=== PATIENT | female | born 1985 | race Caucasian/White ===

== ENCOUNTER 2025-03-25 18:37 | Emergency (ER) | payer OTHER ==
[~2025-03-25] VITALS: Ht 167.6 cm; Wt 90.7 kg
[2025-03-25 20:21] LABS: PLATELET COUNT (AUTO) 245 K/uL (150-450); RED BLOOD CELL COUNT(AUTO) 3.75 MIL/uL (4.0-5.2); RED CELL DISTRIBUTION WIDTH 16.6 % (11.5-15.0); WHITE BLOOD COUNT (AUTO) 5.1 K/uL (4.3-11.0)
[2025-03-25 20:43] LABS: APPEARANCE,URINE TURBID (CLEAR); BLOOD, URINE NEGATIVE Ery/uL (NEGATIVE); LEUKOCYTE ESTERASE ,URINE NEGATIVE (NEGATIVE); NITRITE, URINE NEGATIVE (NEGATIVE); UGLUCOSE NEGATIVE (NEGATIVE)
[2025-03-25 20:49] LABS: CALCIUM, SERUM 8.6 mg/dL (8.5-10.1); CREATININE 0.9 mg/dL (0.6-1.3); SODIUM SERUM 148 mmol/L (136-145); UREA NITROGEN, BLOOD 12 mg/dL (7-18)
[2025-03-25] MEDS ORDERED: PROCHLORPERAZINE EDISYLATE 10 MG/2 ML VIAL ONE (20:57)
[2025-03-25] MEDS: PROCHLORPERAZINE EDISYLATE 10 MG/2 ML VIAL IVP ONE (20:57)
[2025-03-25] MEDS: IV NS 0.9% 1,000 ML BAG IV ONE (20:58)
[2025-03-25 21:02] LABS: ADD URINE CULTURE NO; SQUAMOUS EPITHELIAL CELL,UR 0-2 /HPF (None Seen); URINE AMORPHOUS PHOSPHATES Moderate /HPF (None Seen)
[2025-03-25 21:02] LABS: ASPARTATE AMINOTRANSFERASE 15 U/L (15-37)
[2025-03-25 21:03] LABS: TOTAL PROTEIN, SERUM 6.7 g/dL (6.4-8.2)
[2025-03-25 21:33] LABS: EOSINOPHILS % (MANUAL) 2 % (0-4); LYMPHOCYTES % (MANUAL) 72 % (16-48); MONOCYTES % (MANUAL) 15 % (0-11.0); NEUTROPHILS % (MANUAL) 11 (42-76); PLATELET ESTIMATE ADEQUATE
[2025-03-25 21:41] LABS: ALCOHOL, BLOOD < 3 mg/dL (0-10)
[2025-03-25 21:42] LABS: AMPHETAMINE, URINE NEGATIVE (NEGATIVE); BARBITURATE, URINE NEGATIVE (NEGATIVE); BENZODIAZEPINE, URINE POSITIVE (NEGATIVE); CANNABINOID, URINE POSITIVE (NEGATIVE); COCCAINE, URINE NEGATIVE (NEGATIVE); OPIATE, URINE NEGATIVE (NEGATIVE)
[2025-03-25 21:53] VITALS: BP 122/78; TEMP 98.1; O2SAT 99
== END 2025-03-25 21:54 | disposition home or self-care (01) ==
LOC: ER 18:42
DX: T59.0X1A Toxic effect of nitrogen oxides, accidental (unintentional), initial encounter (principal); R51.9 Headache, unspecified; R20.2 Paresthesia of skin; R20.0 Anesthesia of skin; F19.10 Other psychoactive substance abuse, uncomplicated; R10.2 Pelvic and perineal pain; R07.9 Chest pain, unspecified; Y92.89 Other specified places as the place of occurrence of the external cause
CPT/HCPCS: 99285; 96374; 96361; 96375; 93005; 70450; 85027; 80048; 80076; 85007; 81001; 36415; 84702; 80143; 80320; 80307; 80503; J0780; J1200; J7030; G0480

== ENCOUNTER 2025-04-30 11:00 | Emergency (ER) | payer OTHER ==
[~2025-04-30] VITALS: Ht 167.6 cm; Wt 90.7 kg
[2025-04-30] MEDS ORDERED: ACETAMINOPHEN ES 500 MG TABLET ONE (11:38)
[2025-04-30] MEDS: ACETAMINOPHEN 325 MG TABLET PO ONE (11:45)
[2025-04-30] MEDS: IV NS 0.9% 1,000 ML BAG IV ONE (11:45)
[2025-04-30 12:00] VITALS: TEMP 98.3
[2025-04-30 13:56] VITALS: BP 125/85; O2SAT 98
== END 2025-04-30 13:45 | disposition home or self-care (01) ==
LOC: ER 11:03
DX: T42.6X1A Poisoning by other antiepileptic and sedative-hypnotic drugs, accidental (unintentional), initial encounter (principal); R00.0 Tachycardia, unspecified; R00.2 Palpitations; R51.9 Headache, unspecified; F19.10 Other psychoactive substance abuse, uncomplicated; R53.83 Other fatigue; Y92.89 Other specified places as the place of occurrence of the external cause
CPT/HCPCS: 99283; 96360; J7030

== ENCOUNTER 2025-06-17 14:32 | Emergency (ER) | payer OTHER ==
[~2025-06-17] VITALS: Ht 167.6 cm; Wt 90.7 kg
[2025-06-17 14:42] VITALS: TEMP 98.3
[2025-06-17] MEDS ORDERED: ONDANSETRON HCL/PF 4 MG/2 ML VIAL ONE (15:38)
[2025-06-17] MEDS ORDERED: METOCLOPRAMIDE HCL 10 MG/2 ML VIAL ONE (15:38)
[2025-06-17] MEDS ORDERED: ACETAMINOPHEN ES 500 MG TABLET ONE ×2 (15:39→15:57)
[2025-06-17 15:46] LABS: PLATELET COUNT (AUTO) 397 K/uL (150-450); RED BLOOD CELL COUNT(AUTO) 4.33 MIL/uL (4.0-5.2); RED CELL DISTRIBUTION WIDTH 17.7 % (11.5-15.0); WHITE BLOOD COUNT (AUTO) 16.1 K/uL (4.3-11.0)
[2025-06-17 15:50] LABS: CALCIUM, SERUM 8.6 mg/dL (8.5-10.1); CREATININE 1.2 mg/dL (0.6-1.3); SODIUM SERUM 134 mmol/L (136-145); UREA NITROGEN, BLOOD 12 mg/dL (7-18)
[2025-06-17] MEDS: IV NS 0.9% 1,000 ML BAG IV ONE (15:53)
[2025-06-17] MEDS: METOCLOPRAMIDE HCL 10 MG/2 ML VIAL IV ONE (15:56)
[2025-06-17] MEDS ORDERED: KETOROLAC TROMETHAMINE 15 MG/ML VIAL ONE (15:56)
[2025-06-17 15:57] LABS: INR 0.98 (0.91-1.10)
[2025-06-17] MEDS: ONDANSETRON HCL/PF 4 MG/2 ML VIAL IVP ONE (16:02)
[2025-06-17] MEDS: ACETAMINOPHEN ES 500 MG TABLET PO ONE (16:08)
[2025-06-17] MEDS: KETOROLAC TROMETHAMINE 15 MG/ML VIAL IV ONE (16:10)
[2025-06-17 17:13] LABS: FLOW, VBG 0.00 L/min (0.00-30.00); FRACTIONATED INSPIRED OXYGEN-V 21.0 %; SITE, VBG VBG - N/A; VBG BASE EXCESS -3.4 mmol/L (-2.0-3.0); VBG HCO3 20.5 mmol/L (22.0-29.0); VBG MetHb 0.0 % (0.5-1.5); VBG OXYGEN SATURATION 81.0 % (60.0-85.0); VBG PCO2 33.0 mmHg (38.0-54.0); VBG PH 7.412 (7.320-7.430); VBG PO2 45.7 mmHg (23.0-48.0); VBG TOTAL HEMOGLOBIN 10.7 G/dL (12.0-16.0)
[2025-06-17] MEDS ORDERED: DIPH25CA83 PO (17:25)
[2025-06-17] MEDS ORDERED: METF-440 PO (17:25)
[2025-06-17] MEDS ORDERED: METO-295 PO (17:25)
[2025-06-17] MEDS ORDERED: ONDA4TAB5 PO (17:25)
[2025-06-17 17:54] VITALS: BP 132/100; O2SAT 99
[2025-06-17 18:35] LABS: APPEARANCE,URINE CLEAR (CLEAR); BLOOD, URINE NEGATIVE Ery/uL (NEGATIVE); LEUKOCYTE ESTERASE ,URINE NEGATIVE (NEGATIVE); NITRITE, URINE NEGATIVE (NEGATIVE); PREGNANCY TEST URINE QUAL NEGATIVE (NEGATIVE); UGLUCOSE 3+ mg/dL (NEGATIVE)
[2025-06-17 18:49] LABS: SQUAMOUS EPITHELIAL CELL,UR Many /HPF (None Seen)
[2025-06-17 18:50] LABS: ADD URINE CULTURE YES
== END 2025-06-17 17:55 | disposition home or self-care (01) ==
LOC: ER 14:36
DX: R51.9 Headache, unspecified (principal); M54.2 Cervicalgia; H53.8 Other visual disturbances; Z79.899 Other long term (current) drug therapy
CPT/HCPCS: 99285; 96374; 96375; 70450; 71045; 96361; 93005; 82803 ×2; 85025; 80048; 87086; 84703; 81001; 36415; 84484; 85730; 82962; J1885; J1200; J2765; J2405; J7030 ×2

== ENCOUNTER 2025-06-22 10:51 | Emergency (ER) | payer OTHER ==
[~2025-06-22] VITALS: Ht 165.1 cm; Wt 90.7 kg
[~2025-06-22 10:51] MED LIST: DIPH25CA83 PO; METF-440 PO; METO-295 PO; ONDA4TAB5 PO
[2025-06-22] MEDS ORDERED: KETOROLAC TROMETHAMINE 15 MG/ML VIAL ONE (11:42)
[2025-06-22 11:46] LABS: APPEARANCE,URINE CLEAR (CLEAR); BLOOD, URINE Negative Ery/uL (NEGATIVE); LEUKOCYTE ESTERASE ,URINE Negative (NEGATIVE); NITRITE, URINE NEGATIVE (NEGATIVE); UGLUCOSE >=1000 mg/dL (NEGATIVE)
[2025-06-22 12:07] LABS: PLATELET COUNT (AUTO) 392 K/uL (150-450); RED BLOOD CELL COUNT(AUTO) 4.66 MIL/uL (4.0-5.2); RED CELL DISTRIBUTION WIDTH 17.5 % (11.5-15.0); WHITE BLOOD COUNT (AUTO) 13.8 K/uL (4.3-11.0)
[2025-06-22] MEDS: IV LR 1000 ML 1,000 ML IV ONE (12:11)
[2025-06-22] MEDS: KETOROLAC TROMETHAMINE 15 MG/ML VIAL IV ONE (12:13)
[2025-06-22 12:28] LABS: PHOSPHORUS 3.0 mg/dL (2.5-4.9)
[2025-06-22 12:31] LABS: ASPARTATE AMINOTRANSFERASE 32.0 U/L (15-37); CALCIUM, SERUM 8.7 mg/dL (8.5-10.1); SODIUM SERUM 130.0 mmol/L (136-145); TOTAL PROTEIN, SERUM 7.1 g/dL (6.4-8.2); UREA NITROGEN, BLOOD 10.0 mg/dL (7-18)
[2025-06-22] MEDS ORDERED: ONDANSETRON HCL/PF 4 MG/2 ML VIAL ONE (12:32)
[2025-06-22] MEDS: ONDANSETRON HCL/PF 4 MG/2 ML VIAL IV ONE (12:35)
[2025-06-22 12:48] LABS: CREATININE 0.6 mg/dL (0.6-1.3)
[2025-06-22 13:18] LABS: FLOW, VBG 0.00 L/min (0.00-30.00); FRACTIONATED INSPIRED OXYGEN-V 21.0 %; SITE, VBG VBG - N/A; VBG BASE EXCESS -6.5 mmol/L (-2.0-3.0); VBG HCO3 16.5 mmol/L (22.0-29.0); VBG MetHb 0.2 % (0.5-1.5); VBG OXYGEN SATURATION 85.0 % (60.0-85.0); VBG PCO2 25.3 mmHg (38.0-54.0); VBG PH 7.433 (7.320-7.430); VBG PO2 50.0 mmHg (23.0-48.0); VBG TOTAL HEMOGLOBIN 10.0 G/dL (12.0-16.0)
[2025-06-22] MEDS ORDERED: PROCHLORPERAZINE EDISYLATE 10 MG/2 ML VIAL ONE (13:46)
[2025-06-22] MEDS: PROCHLORPERAZINE EDISYLATE 10 MG/2 ML VIAL IVP ONE (13:53)
[2025-06-22 14:25] VITALS: BP 120/80; TEMP 98.2; O2SAT 18
== END 2025-06-22 14:27 | disposition home or self-care (01) ==
LOC: ER 10:53
DX: E11.65 Type 2 diabetes mellitus with hyperglycemia (principal); R51.9 Headache, unspecified; Z79.84 Long term (current) use of oral hypoglycemic drugs
CPT/HCPCS: 99285; 96374; 96375; 96361; 82803 ×2; 85025; 80048; 82010; 80076; 83735; 83036; 84100; 81003; 36415; 82962 ×2; J1885; J0780; J1200; J2405; J7120 ×2